=== PATIENT | female | born 1985 | race African-American/Black ===

== ENCOUNTER 2016-09-04 14:47 | Emergency (ER) | payer OTHER ==
[2016-09-04 14:59] VITALS: PULSE 79; RESP 20; TEMP 97.7
[2016-09-04] MEDS ORDERED: BUTALB/APAP/CAFF 50-325-40MG TAB PO STA (16:23)
[2016-09-04] MEDS ORDERED: CYCLOBENZAPRINE 10 MG TAB PO STA (16:23)
--- NOTE | 2016-09-04 16:43 | CT ---
EXAMINATION TYPE: CT brain wo con DATE OF EXAM: 09/04/2016 4:37 PM COMPARISON: NONE INDICATION: Right sided Headache DLP: 1017.9 mGycm, Automated exposure control for dose reduction was used. CONTRAST: None CT of the brain is performed utilizing 3 mm thick sections through the posterior fossa and 3 mm thick sections through the remaining calvarium. Study is performed within 24 hours of arrival to the [facility]. No abnormal hyperdensity is present to suggest an acute intracranial hemorrhage. No mass lesion is evident. No acute infarcts are evident. Ventricles and sulci are appropriate for the patient age. Paranasal sinuses and mastoid air cells within the [id number] are clear. IMPRESSIONS: 1. Normal CT Brain
--- NOTE | 2016-09-04 16:57 | ED ---
Headache HPI - General Chief Complaint: Headache Stated Complaint: Headache Time Seen by Provider: 09/04/16 16:12 Source: patient, RN notes reviewed Mode of arrival: ambulatory Limitations: no limitations - History of Present Illness Initial Comments: 30-year-old female presents emergency Department chief complaint headache. Patient states she's had a headache last few days. Patient states she is concerned that she received received a flu vaccine a few days ago states that she has subjective fever after, severe body aches. Patient states she feels tightness in her shoulder region. Patient states her brother has a right-sided headache denies any focal weakness. Denies any blurred vision. Denies any photophobia, nausea vomiting. Patient states she took her family members Tylenol for and has had some relief of the symptoms. Patient denies any neck stiffness. Denies chills, night sweats, cough or chest congestion. Patient has no history of migraines or occipital neuralgia. - Related Data Previous Rx's Medication Instructions Recorded Butalb/APAP/Caff 50-325-40Mg 1 tab PO Q6H PRN #15 tablet 09/04/16 [Fioricet 50-325-40] Cyclobenzaprine [Flexeril] 10 mg PO TID PRN #15 tab 09/04/16 Allergies Allergy/AdvReac Type Severity Reaction Status Date / Time ketorolac [From Toradol] Allergy Chest Pain Verified 09/04/16 14:59 Penicillins Allergy Rash/Hives Verified 09/04/16 14:59 Review of Systems ROS Statement: Those systems with pertinent positive or pertinent negative responses have been documented in the HPI. ROS Other: All systems not noted in ROS Statement are negative. Past Medical History Past Medical History: Deep Vein Thrombosis (DVT) Additional Past Medical History / Comment(s): anemia History of Any Multi-Drug Resistant Organisms: None Reported Additional Past Surgical History / Comment(s): dvt removal, hannah filter Past Psychological History: No Psychological Hx Reported Smoking Status: Never smoker Past Alcohol Use History: Abuse Past Drug Use History: None Reported General Exam Limitations: no limitations General appearance: alert, in no apparent distress Head exam: Present: atraumatic, normocephalic, normal inspection Eye exam: Present: normal appearance, PERRL, EOMI. Absent: scleral icterus, conjunctival injection, periorbital swelling ENT exam: Present: normal exam, normal oropharynx, mucous membranes moist, TM's normal bilaterally, normal external ear exam Neck exam: Present: normal inspection, full ROM. Absent: tenderness, meningismus, lymphadenopathy Respiratory exam: Present: normal lung sounds bilaterally. Absent: respiratory distress, wheezes, rales, rhonchi, stridor Cardiovascular Exam: Present: regular rate, normal rhythm, normal heart sounds. Absent: systolic murmur, diastolic murmur, rubs, gallop, clicks GI/Abdominal exam: Present: soft, normal bowel sounds. Absent: distended, tenderness, guarding, rebound, rigid Neurological exam: Present: alert, oriented X3, CN II-XII intact, reflexes normal, other (Finger to nose intact bilaterally without over shooting). Absent : motor sensory deficit Skin exam: Present: warm, dry, intact, normal color. Absent: rash Course Vital Signs 09/04/16 14:53 Temperature 97.7 F Pulse Rate 79 Respiratory 20 Rate Blood Pressure 123/75 O2 Sat by Pulse 100 Oximetry Medical Decision Making - Medical Decision Making 30-year-old female presented emergency from for headache per patient's CT does not show any acute abnormality. Patient's has normal neuro exam. Patient be discharged this time. Disposition Clinical Impression: Headache Disposition: HOME SELF-CARE Condition: Stable Instructions: Acute Headache (ED) Additional Instructions: Please return to the Emergency Department if symptoms worsen or any other concerns. Prescriptions: Butalb/APAP/Caff 50-325-40Mg [Fioricet 50-325-40] 1 tab PO Q6H PRN #15 tablet PRN Reason: Headache Cyclobenzaprine [Flexeril] 10 mg PO TID PRN #15 tab PRN Reason: Muscle Spasm Time of Disposition: 16:57
[2016-09-04 17:15] VITALS: BP 122/70
== END 2016-09-04 17:15 | disposition home or self-care (01) ==
LOC: EC 14:47
DX: R51 Headache (principal); M62 Other disorders of muscle; Z88.0 Allergy status to penicillin; Z88.6 Allergy status to analgesic agent
CPT/HCPCS: 70450; 99284

== ENCOUNTER 2017-03-24 05:24 | Emergency (ER) | payer OTHER ==
--- NOTE | 2017-03-24 06:04 | ED ---
Headache HPI - General Chief Complaint: Headache Stated Complaint: headache Time Seen by Provider: 03/24/17 05:54 Mode of arrival: ambulatory Limitations: no limitations - History of Present Illness MD Complaint: headache Onset/Timin -: month(s) Onset Description: now resolved Location: right, occipital Severity: moderate Quality: aching Consistency: intermittent, now resolved Improves With: nothing Worsens With: none Context: occurred at rest Treatments Prior to Arrival: Ibuprofen - Related Data Previous Rx's Medication Instructions Recorded Butalb/APAP/Caff 50-325-40Mg 1 tab PO Q6H PRN #15 tablet 09/04/16 [Fioricet 50-325-40] Cyclobenzaprine [Flexeril] 10 mg PO TID PRN #15 tab 09/04/16 Allergies Allergy/AdvReac Type Severity Reaction Status Date / Time ketorolac [From Toradol] Allergy Chest Pain Verified 03/24/17 05:37 Penicillins Allergy Rash/Hives Verified 03/24/17 05:37 Review of Systems ROS Statement: Those systems with pertinent positive or pertinent negative responses have been documented in the HPI. ROS Other: All systems not noted in ROS Statement are negative. Constitutional: Denies: fever, chills, weakness Eyes: Denies: eye pain, vision change ENT: Denies: ear pain, hearing loss Respiratory: Denies: cough, dyspnea Cardiovascular: Denies: chest pain Gastrointestinal: Denies: abdominal pain, nausea, vomiting Musculoskeletal: Denies: back pain Skin: Denies: rash Neurological: Reports: as per HPI, headache. Denies: weakness, numbness, paresthesias, confusion Past Medical History Past Medical History: Deep Vein Thrombosis (DVT) Additional Past Medical History / Comment(s): anemia History of Any Multi-Drug Resistant Organisms: None Reported Additional Past Surgical History / Comment(s): dvt removal, hannah filter Past Psychological History: No Psychological Hx Reported Smoking Status: Never smoker Past Alcohol Use History: Abuse Past Drug Use History: None Reported General Exam Limitations: no limitations General appearance: alert, in no apparent distress Head exam: Present: atraumatic, normocephalic, normal inspection Eye exam: Present: normal appearance, PERRL, EOMI. Absent: scleral icterus, conjunctival injection, nystagmus ENT exam: Present: normal oropharynx, TM's normal bilaterally, normal external ear exam Neck exam: Present: normal inspection, full ROM. Absent: tenderness, meningismus Neurological exam: Present: alert, oriented X3, CN II-XII intact, normal gait. Absent: motor sensory deficit Skin exam: Present: warm, dry, intact, normal color. Absent: rash Course Vital Signs 03/24/17 03/24/17 05:29 06:46 Temperature 97 F L 97.8 F Pulse Rate 74 68 Respiratory 20 16 Rate Blood Pressure 122/66 108/52 O2 Sat by Pulse 99 98 Oximetry Disposition Clinical Impression: Headache Disposition: HOME SELF-CARE Condition: Good Instructions: Acute Headache (ED) Referrals: None,Stated [Primary Care Provider] - 1-2 days Klaudia Garcia MD [STAFF PHYSICIAN] - 1-2 days
[2017-03-24 06:47] VITALS: BP 108/52; PULSE 68; RESP 16; TEMP 97.8
--- NOTE | 2017-03-24 07:00 | CT ---
EXAM: CT Head Without Intravenous Contrast. CLINICAL HISTORY: Reason: Pain TECHNIQUE: Axial computed tomography images of the head/brain without intravenous contrast. CTDI is 60.3 mGy and DLP is 981.7 mGy-cm. This CT exam was performed using one or more of the following dose reduction techniques: automated exposure control, adjustment of the mA and/or kV according to patient size, and/or use of iterative reconstruction technique. COMPARISON: 09/04/16. FINDINGS: Brain: Unremarkable. No hemorrhage. No significant white matter disease. No edema. Ventricles: Unremarkable. No ventriculomegaly. Bones: No acute fracture. Sinuses: Unremarkable as visualized. No acute sinusitis. Mastoid air cells: Unremarkable as visualized. No mastoid effusion. IMPRESSION: No acute intracranial abnormality.
== END 2017-03-24 07:11 | disposition home or self-care (01) ==
LOC: EC 05:24
DX: R51 Headache (principal); Z88.0 Allergy status to penicillin; Z88.6 Allergy status to analgesic agent
CPT/HCPCS: 70450; 99284